=== PATIENT | male | born 1955 | race Caucasian/White ===

== ENCOUNTER 2016-08-29 14:18 | Emergency (ER) | payer OTHER ==
[2016-08-29 14:36] VITALS: TEMP 99
--- NOTE | 2016-08-29 15:29 | RAD ---
EXAM DESCRIPTION: X-RAY CHEST- One View CLINICAL HISTORY: Shortness of breath. COMPARISON: None TECHNIQUE: Single view of the chest. FINDINGS: There are no discrete air space infiltrates, pneumothoraces or pleural effusions. The pulmonary vascularity is normal. There are probable old healed fractures of the right and left posterior 7th ribs. The cardiomediastinal silhouette is unremarkable. IMPRESSION: There are no acute lung parenchymal findings. Electronically signed by: Marvin Anderson MD 08/29/2016 15:27
--- NOTE | 2016-08-29 16:38 | ED.PDOC ---
History of Present Illness - General Chief Complaint: Respiratory Problem Stated Complaint: shortness of breath Time Seen by Provider: 08/29/16 15:10 - History of Present Illness Allergies/Adverse Reactions: Allergies NO KNOWN ALLERGY Allergy (Verified 08/29/16 14:36) Home Medications: Ambulatory Orders Phenobarbital 64.8 mg PO BID 12/14/13 Past Medical History (General) - Patient Medical History Hx Seizures: Yes Hx Stroke: No Hx Dementia: No Hx Asthma: No Hx of COPD: No Hx Cardiac Disorders: No Hx Congestive Heart Failure: No Hx Pacemaker: No Hx Hypertension: Yes Hx Thyroid Disease: No Hx Diabetes: No - diet controlled Hx Gastroesophageal Reflux: No Hx Renal Disease: No Hx Cancer: No Hx of HIV: No Hx Hepatitis C: No Hx MRSA: No Surgical History: no surgical history - Vaccination History Hx Tetanus, Diphtheria Vaccination: - unknown Hx Influenza Vaccination: - unknown Hx Pneumococcal Vaccination: - unknown - Social History Hx Tobacco Use: No Hx Alcohol Use: No Hx Substance Use: No Hx Substance Use Treatment: No Hx Depression: No - Activities of Daily Living Hospice Agency (if applicable):: None - Female History Patient is a Female of Child Bearing Age (10 -59 yrs old): No Patient : No Family Medical History - Family History Mother Family History: No Known Progress - Progress Progress: 08/29/16 16:34 After learning what Patient's CK-MB, Troponin, and d-dimer were, knowing that we would have to transport patient, I called [employer] to get transfer. The hospitalist - EKG/XRAY/CT EKG: Sinus, nonspecific ST T wave Chg - T-wave inversion in V3, V4 Comments: 83bpm, Nml axis, Nml intervals, no comparison, Abnormal EKG XRAY: chest Xray Comments: No acute process CT Ordered: Yes CT Interpretation Call Back: No Departure - Departure Clinical Impression: Shortness of breath, Elevation of cardiac enzymes, Elevated d-dimer Time of Disposition: 17:06 Disposition: Transfer to Hospital Condition: Good Home Medications: Ambulatory Orders Phenobarbital 64.8 mg PO BID 12/14/13 Transfer to Outside Facility - Transfer Information Accepting Provider:: Dr. Royal Accepting Facility: [facility] Reason for Transfer: required specialist not available
--- NOTE | 2016-08-29 16:52 | CT ---
EXAM DESCRIPTION: CT CHEST WITH IV CONTRAST CLINICAL HISTORY: 61 y/o Mshortness of breath,elevated d-dimer COMPARISON: None. TECHNIQUE: Contiguous axial images were obtained through the chest during the infusion of IV contrast. Reformatted images obtained. FINDINGS: The study is slightly suboptimal from motion. The visualized upper abdominal organs appear grossly unremarkable. The visualized splenic flexure is slightly distended with stool. Moderate to large hiatal hernia. Coronary artery calcifications. Small amount of fluid in the mediastinal pericardial recesses. Small lymph nodes in the mediastinum. Mild atherosclerotic changes and tortuosity in the thoracic aorta. The study was not performed utilizing a pulmonary embolism protocol. This study is inadequate for pulmonary embolism evaluation. No consolidating infiltrates or pleural effusions. Degenerative changes in the spine. Old right 7th rib fracture. IMPRESSION: No acute intrathoracic abnormality is identified. The study is inadequate for pulmonary embolism evaluation. Electronically signed by: Jarod Chacko MD 08/29/2016 16:50
[2016-08-29] MEDS ORDERED: ENOXAPARIN SODIUM 100 MG/ML SYG SUBCU ONE (17:47)
[2016-08-29 18:18] VITALS: BP 174/96; O2SAT 94
== END 2016-08-29 18:00 | disposition short-term general hospital (02) ==
LOC: ER 14:18
DX: R06.02 Shortness of breath (principal); R79.89 Other specified abnormal findings of blood chemistry; I10 Essential (primary) hypertension; R94.31 Abnormal electrocardiogram [ECG] [EKG]
CPT/HCPCS: 71010; 71260; 80048; 80076; 82550; 82553; 83880; 84484; 85025; 85379; 85610; 85730; 93005; J1650

== ENCOUNTER → 2016-09-08 | Outpatient (CLI) | payer OTHER | LOC: LAB.O 11:09 | PROVIDERS: ATTEND Internal Medicine Hematology & Oncology | DX: D50.8 Other iron deficiency anemias (principal) ==

== ENCOUNTER 2016-09-11 15:37 | Emergency (ER) | payer OTHER ==
[2016-09-11] MEDS ORDERED: ACETAMINOPHEN 325 MG TAB PO ONE (15:56)
[2016-09-11] MEDS ORDERED: methylPREDNISolone SODIUM SUC 125 MG/2 ML VIAL IV ONE (15:57)
[2016-09-11] MEDS ORDERED: SODIUM CHLORIDE 0.9% 500ML 500 ML IVS SCH (16:00)
[2016-09-11] MEDS ORDERED: methylPREDNISolone SODIUM SUC 125 MG/2 ML VIAL ONE (17:33)
--- NOTE | 2016-09-11 21:23 | ED.PDOC ---
History of Present Illness - General Chief Complaint: GI Problem Stated Complaint: Loosing Blood Time Seen by Provider: 09/11/16 15:37 Source: patient Exam Limitations: no limitations - History of Present Illness Initial Comments: the patient is a 61-year-old male presenting to emergency room secondary to significant anemia. The patient has colon cancer and is planning to have it resected with a surgeon at [facility] on Tuesday. He had a visit with the surgeon last week. On the of this month he had a hemoglobin of 10 and now is down to 5.7. That is a drop of 4-1/2 units in 3 days. He has been having frankly bloody bowel movements. He is feeling tired and a little weak. He is feeling a little bit short of breath. No chest pain. No palpitations. No syncope or near syncope. Timing/Duration: 1 week Severity: moderate Improving Factors: rest Worsening Factors: movement Associated Symptoms: denies symptoms Allergies/Adverse Reactions: Allergies NO KNOWN ALLERGY Allergy (Verified 08/29/16 14:36) Home Medications: Ambulatory Orders Phenobarbital 64.8 mg PO BID 12/14/13 Metoprolol Tartrate 25 mg PO DAILY 09/11/16 Review of Systems - Review of Systems Constitutional: States: malaise EENTM: States: no symptoms reported Respiratory: States: short of breath Cardiology: States: no symptoms reported Gastrointestinal/Abdominal: States: diarrhea - bloody Genitourinary: States: no symptoms reported Musculoskeletal: States: no symptoms reported Skin: States: no symptoms reported Neurological: States: no symptoms reported All other Systems: No Change from Baseline Past Medical History (General) - Patient Medical History Hx Seizures: Yes Hx Stroke: No Hx Dementia: No Hx Asthma: No Hx of COPD: No Hx Cardiac Disorders: No Hx Congestive Heart Failure: No Hx Pacemaker: No Hx Hypertension: Yes Hx Thyroid Disease: No Hx Diabetes: No Hx Gastroesophageal Reflux: No Hx Renal Disease: No Hx Cancer: Yes - Colon Cancer Hx of HIV: No Hx Hepatitis C: No Hx MRSA: No Surgical History: no surgical history - Vaccination History Hx Tetanus, Diphtheria Vaccination: - unknown Hx Influenza Vaccination: Yes Hx Pneumococcal Vaccination: Yes Immunizations Up to Date: Yes - Social History Hx Tobacco Use: No Hx Alcohol Use: No Hx Substance Use: No Hx Substance Use Treatment: No Hx Depression: No - Female History Patient : No Family Medical History - Family History Mother Family History: No Known Living Status: Physical Exam - Physical Exam General Appearance: Alert, Comfortable, No apparent distress Eye Exam: bilateral normal Ears, Nose, Throat: normal ENT inspection, normal pharynx Neck: full range of motion, supple Respiratory: chest non-tender, lungs clear, normal breath sounds, no respiratory distress, no accessory muscle use Cardiovascular/Chest: normal peripheral pulses, regular rate, rhythm, no edema Peripheral Pulses: radial,right: 2+, radial,left: 2+ Gastrointestinal/Abdominal: non tender, soft Rectal Exam: deferred Back Exam: normal inspection Extremity: normal range of motion, non-tender, normal inspection, no pedal edema , other - the patient is pale. Capillary refill is approximately 2 seconds. Neurologic: alert, normal mood/affect, oriented x 3 Skin Exam: pallor Comments: Vital Signs - 24 hr 09/11/16 09/11/16 09/11/16 15:51 18:10 18:30 Temperature 98.0 F 97.2 F L 97.7 F Pulse Rate [ 85 84 78 Apical] Respiratory 16 20 16 Rate Blood Pressure 136/69 114/58 116/57 [Left Arm] O2 Sat by Pulse 100 99 99 Oximetry 09/11/16 09/11/16 18:45 19:15 Temperature 97.1 F L Pulse Rate [ 78 77 Apical] Respiratory 20 16 Rate Blood Pressure 112/64 118/78 [Left Arm] O2 Sat by Pulse 99 96 Oximetry Progress - Progress Progress: 09/11/16 21:25 the patient is a 61-year-old male presenting with symptomatic anemia from a bleeding colon cancer. We are going to transfer the patient to the hospital where his surgeon resides. The patient has received 1 unit of packed red blood cells and is starting the second. He will need a repeat CBC upon arrival. The patient has received Tylenol, Solu-Medrol and Benadryl. He appears to be tolerating the transfusion well. - Results/Orders Results/Orders: Vital Signs - 24 hr 09/11/16 09/11/16 09/11/16 15:51 18:10 18:30 Temperature 98.0 F 97.2 F L 97.7 F Pulse Rate [ 85 84 78 Apical] Respiratory 16 20 16 Rate Blood Pressure 136/69 114/58 116/57 [Left Arm] O2 Sat by Pulse 100 99 99 Oximetry 09/11/16 09/11/16 18:45 19:15 Temperature 97.1 F L Pulse Rate [ 78 77 Apical] Respiratory 20 16 Rate Blood Pressure 112/64 118/78 [Left Arm] O2 Sat by Pulse 99 96 Oximetry 09/11/16 15:56 Acetaminophen [Tylenol] 650 mg PO ONCE ONE 09/11/16 16:00 PACKED CELLS,LR Stat TYPE AND SCREEN Stat Sodium Chloride 0.9% 500Ml [NS 500ml] 500 ml IVS .KVO Laboratory Results - last 24 hr 09/11/16 16:00 Patient ABO/Rh O POSITIVE Antibody Screen Negative Crossmatch See Detail hemoglobin and hematocrit were 5 and 17. 09/11/16 15:56 Acetaminophen [Tylenol] 650 mg PO ONCE ONE 09/11/16 16:00 PACKED CELLS,LR Stat TYPE AND SCREEN Stat Sodium Chloride 0.9% 500Ml [NS 500ml] 500 ml IVS .KVO Laboratory Results - last 24 hr 09/11/16 16:00 Patient ABO/Rh O POSITIVE Antibody Screen Negative Crossmatch See Detail Departure - Departure Clinical Impression: GI bleed Qualifiers: GI bleed type/associated pathology: unspecified gastrointestinal hemorrhage type Qualifier Code: (K92.2) Gastrointestinal hemorrhage, unspecified Disposition: Transfer to Hospital Home Medications: Ambulatory Orders Phenobarbital 64.8 mg PO BID 12/14/13 Metoprolol Tartrate 25 mg PO DAILY 09/11/16 Transfer to Outside Facility - Transfer Information Accepting Provider:: dr sol Accepting Facility: [facility] Reason for Transfer: required specialist not available
[2016-09-11 22:01] VITALS: TEMP 99.1
[2016-09-11 23:43] VITALS: BP 129/80; O2SAT 96
== END 2016-09-11 22:35 | disposition short-term general hospital (02) ==
LOC: ER 15:37
DX: K92.2 Gastrointestinal hemorrhage, unspecified (principal); C18.9 Malignant neoplasm of colon, unspecified; R06.02 Shortness of breath; I10 Essential (primary) hypertension; R56.9 Unspecified convulsions; Z79.899 Other long term (current) drug therapy
CPT/HCPCS: 86850; 86900; 86901; 86922; 87798; J2930; J7040; P9016

== ENCOUNTER → 2016-09-11 | Outpatient (CLI) | payer OTHER | LOC: LAB.O 14:17 | PROVIDERS: ATTEND Nurse Practitioner Family | DX: D64.9 Anemia, unspecified (principal) ==

== ENCOUNTER 2016-10-06 06:02 | Day surgery (SDC) | payer OTHER ==
[2016-10-06] MEDS ORDERED: SODIUM CHL 0.9% 100ML MINI-BAG 100 ML IVPB ONE (07:12)
[2016-10-06] MEDS ORDERED: LACTATED RINGERS 1,000 ML ONE (07:12)
[2016-10-06] MEDS ORDERED: ceFAZolin SODIUM 1 GM VIAL ONE (07:12)
[2016-10-06] MEDS ORDERED: LIDOCAINE 1% 50 ML VIAL INJ ONE (11:29)
[2016-10-06] MEDS ORDERED: HEPARIN SODIUM 100 U/ML 5 ML SYG IV ONE (11:30)
[2016-10-06] MEDS ORDERED: SODIUM BICARBONATE VIAL 50 MEQ/50 ML VIAL ONE (11:30)
[2016-10-06] MEDS ORDERED: SODIUM CHLORIDE 0.9% 50 ML VIAL ONE (11:30)
[2016-10-06] MEDS ORDERED: LIDOCAINE 1% 10 ML VIAL INJ ONE (12:00)
[2016-10-06] MEDS ORDERED: PROPOFOL 200 MG/20 ML VIAL IV ONE ×2 (12:00)
[2016-10-06] MEDS ORDERED: MIDAZOLAM INJ 5 MG/5 ML VIAL ONE (12:18)
[2016-10-06] MEDS ORDERED: fentaNYL CITRATE INJ 50 MCG/ML AMP ONE (12:18)
--- NOTE | 2016-10-06 13:45 | RAD ---
EXAM DESCRIPTION: XR CHEST 1 VIEW CLINICAL HISTORY: Post-Op Port placement COMPARISON: August 29, 2016 TECHNIQUE: Single view chest FINDINGS: The lungs are clear. There is no pleural effusion or pneumothorax. Heart size is unremarkable. IMPRESSION: CT compatible subcutaneous infusion catheter noted. Tip is in the SVC. No evidence of pneumothorax on today's study. Electronically signed by: Arcadio Mckeon MD 10/06/2016 13:42
--- NOTE | 2016-10-06 14:37 | OP ---
DATE OF PROCEDURE: 10/06/16 PREOPERATIVE DIAGNOSIS: 1. Carcinoma of the colon, to begin chemotherapy. POSTOPERATIVE DIAGNOSIS: 1. Carcinoma of the colon, to begin chemotherapy. PROCEDURE: 1. Insertion of right subclavian venous access port using fluoroscopy. SURGEON: George Mejia MD. TERRAZZO INSTALLER: None. ANESTHESIA: Local infiltration of 1% lidocaine with bicarb and IV sedation by Anesthesia. INDICATION: The patient is a 61-year-old male who has undergone a left colectomy with primary anastomosis for a carcinoma of the colon with positive node. He is to begin chemotherapy later this morning and I have been asked to obtain central venous access for such. FINDINGS: The guidewire and then the catheter were identified in the superior vena cava. Post procedure chest x-ray to rule out pneumothorax is pending. PROCEDURE: After the patient was brought to the Surgical Suite, he prepped and draped in the usual sterile manner. He was sedated. The clavicle is noted to have been fractured and first local infiltration was used lateral to the fracture site. However, no blood was obtained there, so we moved medially and made a second area. The needle was introduced and venous blood was easily aspirated. The guidewire was introduced without difficulty. At this point, a towel was placed over the chest and fluoroscopy was used to identify the guidewire in the superior vena cava. At this point, an incision was made over the guidewire and the port pocket was formed, first with local infiltration of anesthesia, then the sharp knife. Dissection was carried down through the skin and subcutaneous tissue using electrocautery and then dissection forming the pocket was done using electrocautery and blunt dissection. The port was introduced into the port pocket and sutured in place with two 3-0 Prolene simple sutures. The catheter was tunneled from the port pocket to the insertion site. It was then cut to the appropriate length. The dilator introducer was introduced over the guidewire. The guidewire and dilator were removed. The catheter was introduced through the introducer and advanced and then the introducer was removed in the usual manner. When this was done, towel was placed over the field and fluoroscopy was used to identify the catheter in good position. The port was accessed with a Gamble needle, aspirated easily, and then flushed first with heparinized saline and then with heplock and the Gamble needle was removed. When this was done, the skin edges were approximated with the port pocket with subcutaneous sutures of 3-0 Vicryl and then subcuticular sutures of 4-0 Vicryl, benzoin and Steri-Strips. Sterile pressure dressing was applied. The patient tolerated the procedure well. Estimated blood loss was less than 20 mL. All sponge, needle and instrument counts were correct. #[id number] [facility]
[2016-10-06 15:12] VITALS: BP 116/79; TEMP 98; O2SAT 100
== END 2016-10-06 14:25 | disposition home or self-care (01) ==
LOC: AMB 06:02
PROVIDERS: ATTEND Surgery
DX: C18.9 Malignant neoplasm of colon, unspecified (principal); I10 Essential (primary) hypertension; E11.9 Type 2 diabetes mellitus without complications; Z86.73 Personal history of transient ischemic attack (TIA), and cerebral infarction without residual deficits; G40.909 Epilepsy, unspecified, not intractable, without status epilepticus; Z90.49 Acquired absence of other specified parts of digestive tract; I48.91 Unspecified atrial fibrillation; R94.31 Abnormal electrocardiogram [ECG] [EKG]; Z87.891 Personal history of nicotine dependence; Z88.8 Allergy status to other drugs, medicaments and biological substances; Z79.899 Other long term (current) drug therapy
CPT/HCPCS: 00532; 36415; 36561; 71010; 76000; 80048; 81001; 85025; 93005; A4216; C1788; J0690; J1642; J2250; J3010; J3490; J7050; J7120

== ENCOUNTER → 2016-11-22 | Outpatient (CLI) | payer OTHER | END | disposition home or self-care (01) | LOC: GMAJ 14:41 | PROVIDERS: ATTEND Family Medicine | DX: G40.309 Generalized idiopathic epilepsy and epileptic syndromes, not intractable, without status epilepticus (principal) ==

== ENCOUNTER → 2017-04-12 | Outpatient (CLI) | payer OTHER | END | disposition home or self-care (01) | LOC: GMAJ 14:12 | PROVIDERS: ATTEND Family Medicine | DX: R56.9 Unspecified convulsions (principal); I10 Essential (primary) hypertension ==

== ENCOUNTER → 2017-07-28 | Outpatient (CLI) | payer OTHER, BC ==
--- NOTE | 2017-07-30 14:15 | CT ---
EXAM DESCRIPTION: Abdomen/Pelvis w/Contrast: CT. CLINICAL HISTORY: MALIGNANT NEOPLASM OF SIGMOID COLON COMPARISON: CT scan of the chest with IV contrast today. TECHNIQUE: Spiral-axial scans at 5.0 mm intervals through the abdomen and pelvis, after nonionic IV contrast. No oral contrast. Coronal and sagittal 2.0 mm reconstructions. No adverse reactions. Total Exam DLP: 1868.77 mGy-cm. This exam was performed according to our departmental dose-optimization program which includes automated exposure control, adjustment of the mA and/or kV according to patient size and/or use of iterative reconstruction technique; to reduce radiation dose to as low as reasonably achievable (ALARA). FINDINGS: Liver, Stomach, Spleen, Adrenal Glands: Moderate hiatal hernia. Spleen adrenal glands and liver are unremarkable. Pancreas, Gallbladder, Ducts: Gallbladder visualized. Pancreas and ducts unremarkable. Kidneys and Ureters: 3.5 cm cyst in the posterior medial right kidney. Small cortical cyst lateral left kidney. 2 mm stone inferior collecting system left. Mesentery: No free air or free fluid. No stranding or fascial thickening. Calcifications abutting the left common iliac artery. Aorta: Normal caliber with no significant atherosclerotic calcification. Minimal calcification in the origin of the left renal artery. Small Bowel: Normal caliber with no significant air-fluid levels. Terminal Ileum/Cecum: Minimally distended by fecal material. Normal caliber of the appendix containing gas. Normal density of the surrounding fat. Colon: Minimally distended by gas and fecal material. Surgical anastomosis of the distal rectum. Distal sigmoid colon is decompressed with a striated appearance. Marked redundancy of the sigmoid colon. Proximal most sigmoid distended by gas. Pelvic Organs: Prostate gland is abutting the base of the urinary bladder with overall increased density. No free fluid. Calcifications in the pelvis with no enlarged lymph nodes. Small lymph nodes. Aortic and bilateral iliac regions. Spine and Bony Pelvis: Spondylosis at multiple levels of the lower thoracic and upper lumbar spine. Also L5-S1 with disc degeneration moderate canal narrowing and significant bilateral foraminal narrowing. Upper lumbar levoscoliosis. No bone destruction. Bilateral hip joint space narrowing. Abdominal Wall/Back Soft Tissues: Moderate size left inguinal hernia not containing bowel. IMPRESSION: 1. Postsurgical changes in the rectum. No mass. Redundant sigmoid but no definite obstruction. Constipation in the mid and distal colon. No bowel obstruction. 2. No pelvic or abdominal mass or adenopathy. No ascites. 3. 3.5 mm cyst right kidney otherwise unremarkable. Small cortical cyst left kidney. 4. Diffuse spondylosis lower thoracic spine and upper lumbar spine and L5-S1 level with bilateral significant foraminal narrowing and scoliosis. 5. Moderate left inguinal hernia not containing bowel. Electronically signed by: Nacho Raygoza MD 07/30/2017 2:14 PM [facility] Workstation: [id number]
--- NOTE | 2017-07-30 14:59 | CT ---
EXAM DESCRIPTION: Chest w/Contrast CT. CLINICAL HISTORY: MALIGNANT NEOPLASM OF SIGMOID COLON COMPARISON: CT scan abdomen with IV contrast on this visit. CT scan of the chest with contrast 08/29/2016. TECHNIQUE: Spiral-axial scans at 5.0 mm intervals through the lungs and thorax with IV contrast. 2.5 mm lung algorithm axial reconstructions. Coronal and sagittal 2.0 Mm reconstructions. No adverse reactions. Total Exam DLP: 1868.77 mGy-cm. This exam was performed according to our departmental dose-optimization program which includes automated exposure control, adjustment of the mA and/or kV according to patient size and/or use of iterative reconstruction technique; to reduce radiation dose to as low as reasonably achievable (ALARA). FINDINGS: Minimal bilateral lower lobe parenchymal scarring with bilateral basilar pleural thickening. Minimal bilateral hyperinflation. Bulla in the anterior right lower lobe. No bilateral abnormal nodules or infiltrates or masses. No pleural effusion or pneumothorax. Thyroid gland uniform enhancement. No enlarged lymph nodes of the neck base. No bilateral axillary adenopathy. Small mediastinal and hilar nodes but not enlarged or abnormally enhancing. Coronary artery calcifications proximal LAD. Spondylosis in the included thoracic spine. No bone destruction or compression deformities. Lower dextroscoliosis. IMPRESSION: 1. Mild emphysematous changes in the lungs bilaterally with a bulla in the right lower lobe. No masses nodules or infiltrates. No pleural effusion. 2. No mediastinal or hilar adenopathy. No axillary adenopathy. No masses in the base of the neck. 3. Stable since prior chest CT scan August 2016. Electronically signed by: Nacho Raygoza MD 07/30/2017 2:58 PM [employer] [facility] Workstation: [id number]
== END ==
LOC: CT 08:21
PROVIDERS: ATTEND Internal Medicine Hematology & Oncology
DX: C18.7 Malignant neoplasm of sigmoid colon (principal); Z98.890 Other specified postprocedural states; N28.1 Cyst of kidney, acquired; K59.00 Constipation, unspecified; M47.894 Other spondylosis, thoracic region; M47.896 Other spondylosis, lumbar region; K40.90 Unilateral inguinal hernia, without obstruction or gangrene, not specified as recurrent

== ENCOUNTER → 2017-09-22 | Outpatient (CLI) | payer BC | LOC: GMAJ 14:46 | PROVIDERS: ATTEND Family Medicine | DX: R56.9 Unspecified convulsions (principal); Z12.5 Encounter for screening for malignant neoplasm of prostate ==

== ENCOUNTER → 2017-10-27 | Outpatient (CLI) | payer BC | LOC: GMAJ 14:11 | PROVIDERS: ATTEND Family Medicine | DX: C18.7 Malignant neoplasm of sigmoid colon (principal) ==

== ENCOUNTER → 2018-02-20 | Outpatient (CLI) | payer BC | LOC: GMAJ 11:45 | PROVIDERS: ATTEND Family Medicine | DX: C18.7 Malignant neoplasm of sigmoid colon (principal) ==

== ENCOUNTER → 2018-07-14 | Outpatient (CLI) | payer BC | LOC: GMAJ 10:46 | PROVIDERS: ATTEND Family Medicine | DX: C18.7 Malignant neoplasm of sigmoid colon (principal) ==

== ENCOUNTER → 2018-10-04 | Outpatient (CLI) | payer BC | LOC: GMAJ 10:48 | PROVIDERS: ATTEND Family Medicine | DX: Z12.5 Encounter for screening for malignant neoplasm of prostate (principal) ==

== ENCOUNTER → 2018-10-09 | Outpatient (CLI) | payer BC ==
--- NOTE | 2018-10-09 13:51 | RAD ---
EXAM DESCRIPTION: UGI: Rad-Fluoroscopy. CLINICAL HISTORY: Gastroesophageal REFLUX DISEASE WITHOUT ESOPHAGITIS COMPARISON: CT scans of the chest 07/28/2017, and 08/29/2016. TECHNIQUE: Preliminary AP rose grower radiograph. The patient swallowed barium pill with water. The patient swallowed gas-producing granules, water, and heavy density barium under fluoroscopic visualization. The images were obtained with the patient standing and horizontal. Patient drank medium density barium through a straw in the semi-prone position. 85 fluoroscopic cine loop images. 13 static fluoroscopic images. Total fluoroscopy time was 4.2 minutes. DAP: 19.4 Gy-cm2. 110.3 mGy. FINDINGS: The patient was given a barium contrast pill and water to drink. After moderate difficulty. The patient was able to swallow the pill which. In the distal esophagus and what appears to be a hiatal hernia. The patient has a subclavian central line in customary position. After swallowing, there is delayed residual filling of the left vallecula. No john aspiration in the larynx. Primary peristaltic wave is interrupted at the distal esophagus by large relatively fixed hiatal hernia. The distal esophagus dilates proximal to the hernia. Contrast narrows as it courses through the hernia, and minimal posterior and right lateral deviation of the lumen, but there is no twist or obstruction of the lumen. When the patient is moved from the standing to the horizontal position, or when patient rolls [id number], marked reflux is noted above the level of the tracheal elle. The coating of the stomach and duodenum was not optimal. No gastroduodenal obstruction. No gross mucosal lesions in the stomach or esophagus. IMPRESSION: 1. Moderate size fixed hiatal hernia but no obstruction or perforation of the lumen in the distal esophagus, hernia, remainder the stomach, or duodenum. Mass effect and minimal deviation of the lumen as it passes through the hernia. 2. Gastroesophageal reflux from the hiatal hernia above the level of the tracheal elle. 3. No gross mucosal lesions or mass effect in the intra-abdominal stomach or duodenum. Electronically signed by: Nacho Raygoza MD 10/09/2018 1:48 PM [facility]
== END ==
LOC: RAD 09:14
PROVIDERS: ATTEND Family Medicine
DX: K21.9 Gastro-esophageal reflux disease without esophagitis (principal)

== ENCOUNTER 2018-11-22 19:34 | Emergency (ER) | payer BC ==
--- NOTE | 2018-11-22 19:47 | ED.PDOC ---
History of Present Illness - General Chief Complaint: Abdominal Pain Stated Complaint: abdominal pain left side Time Seen by Provider: 11/22/18 19:46 Information Source: patient Exam Limitations: no limitations Additional Information: Jitendra Mares 63 y/o male stated that he had onset of sharp steady left sided abdominal pain since this am not going away.Denies hematuria,dysuria,constipation,diarrhea,nausea/vomiting or blood in stool.Able to eat lunch but not better no N/V after food.Has history of colon CA s/p partial colon resection 2 years ago.Had recent colonoscopy and follow up with his oncologist. - History of Present Illness Abdominal Pain Onset Location: other - left side see hpi Pain Radiation: no radiation Quality: moderate Timing/Duration: 7-24 hours Improving Factors: nothing Worsening Factors: nothing Associated Symptoms: denies symptoms Review of Systems - Review of Systems Constitutional: States: no symptoms reported EENTM: States: no symptoms reported Respiratory: States: no symptoms reported Gastrointestinal/Abdominal: States: see HPI Genitourinary: States: no symptoms reported Musculoskeletal: States: no symptoms reported Past Medical History (General) - Patient Medical History Hx Seizures: Yes Hx Stroke: No Hx Dementia: No Hx Asthma: No Hx of COPD: No Hx Cardiac Disorders: No Hx Congestive Heart Failure: No Hx Pacemaker: No Hx Hypertension: Yes Hx Thyroid Disease: No Hx Diabetes: No Hx Gastroesophageal Reflux: No Hx Renal Disease: No Hx Cancer: Yes - Colon Cancer Hx of HIV: No Hx Hepatitis C: No Hx MRSA: No Surgical History: other - colon resection - Vaccination History Hx Tetanus, Diphtheria Vaccination: - unknown Hx Influenza Vaccination: Yes Hx Pneumococcal Vaccination: Yes - Social History Hx Tobacco Use: No Hx Alcohol Use: No Hx Substance Use: No Hx Substance Use Treatment: No Hx Depression: No Hx Physical Abuse: No Hx Emotional Abuse: No - Female History Patient : No Family Medical History - Family History Mother Family History: No Known Living Status: Hx Family Cancer: Yes - dad-pancreatic CA; Hx Family;Other: son-ulcerative colitis and crohns disease Physical Exam - Physical Exam General Appearance: Alert, Comfortable, No apparent distress Eyes, Ears, Nose, Throat Exam: normal ENT inspection Neck: supple, normal inspection Respiratory: chest non-tender, lungs clear, normal breath sounds Cardiovascular/Chest: normal peripheral pulses, regular rate, rhythm, no murmur Peripheral Pulses: No deficit Gastrointestinal/Abdominal: non tender, soft, hernia - left sided reducble inguinal hernia, other - no peritoneal signs Male Genitalia: normal genitalia Back Exam: no CVA tenderness, no vertebral tenderness Extremity: no pedal edema, no calf tenderness Neurologic: alert, oriented x 3 Skin Exam: normal color, warm/dry Special Observations: No evidence of discomfort Progress - Progress Progress: 11/22/18 20:25 Vital Signs - 8 hr 11/22/18 19:48 Temperature 97.3 F L Pulse Rate [ 64 left] Respiratory 18 Rate Blood Pressure 183/90 [left] O2 Sat by Pulse 97 Oximetry 11/22/18 20:25 Reduction of scrotal hernia left side which relived his pain Departure - Departure Clinical Impression: Reducible left inguinal hernia Time of Disposition: 20:26 Disposition: Discharge to Home or Self Care Condition: Fair Departure Forms: ED Discharge - Pt. Copy, Patient Portal Self Enrollment Instructions: Inguinal and Femoral (Groin) Hernias, Groin Hernia (DC) Referrals: Miguelito Calderón MD [Primary Care Provider] - 1-2 Weeks Home Medications: Ambulatory Orders Phenobarbital 64.8 mg PO BID 12/14/13 Hydrochlorothiazide 25 mg PO DAILY 10/05/16 Metoprolol Succinate [Metoprolol Succinate ER] 25 mg PO DAILY 10/05/16 Saccharomyces Boulardii [Probiotic] 250 mg PO DAILY 10/05/16 Sennosides-Docusate Sodium [Cata-Colace 8.6-50 mg] 1 tab PO DAILY 10/05/16 Additional Instructions: Continue with all home medications;Need to follow up with -surgeon for further evaluation and management of groin hernia.Need to wear Jock support and stool softener for constipation.
[2018-11-22 20:02] VITALS: TEMP 97.3
[2018-11-22 20:43] VITALS: BP 126/83; O2SAT 98
== END 2018-11-22 20:43 | disposition home or self-care (01) ==
LOC: ER 19:34
DX: K40.90 Unilateral inguinal hernia, without obstruction or gangrene, not specified as recurrent (principal); I10 Essential (primary) hypertension; Z85.038 Personal history of other malignant neoplasm of large intestine; Z90.49 Acquired absence of other specified parts of digestive tract; Z79.899 Other long term (current) drug therapy

== ENCOUNTER → 2018-12-04 | Outpatient (CLI) | payer BC ==
--- NOTE | 2018-12-04 14:24 | US ---
EXAM DESCRIPTION: Testicular (accession [id number]), Bladder (accession [id number]): Ultrasound. CLINICAL HISTORY: 63 years Male INGUINAL HERNIA COMPARISON: CT abdomen and pelvis with contrast 07/28/2017. TECHNIQUE: Transcutaneous scanning ; two-dimensional and Doppler modes. FINDINGS: Dimensions of the right testicle are 4.5 x 3.2 x 2.9 cm, with normal echogenicity and normal color Doppler flow. Epididymal head measures 13 x 12 x 10 mm, with normal echogenicity and normal color Doppler flow. No scrotal wall thickening. Large spermatocele. No Hydrocele. Dimensions of the left testicle are 4.9 x 3.2 x 2.5 cm, with normal echogenicity and normal color Doppler flow. Epididymal head measures 16 x 9 x 7 mm, with normal echogenicity and normal color Doppler flow. No scrotal wall thickening. No Hydrocele. Prevoid measurements of the urinary bladder 10.3 x 11.1 x 9.7 cm equals 581.6 mL. Post void measurements 10.3 x 9.7 x 9.4 cm equals 489.7 mL. Micturition volume 91.9 mL, approximately 15% of initial volume. Ureteral jets were not seen within the bladder by Doppler. No mass effect on the urinary bladder. IMPRESSION: 1. 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 Right testicle and epididymis unremarkable. 2. No fluid or mass in the left scrotum. Normal ultrasound of the epididymis and testicle. 3. Patient only able to void 15% of initial urinary bladder volume. No mass effect on the urinary bladder. Electronically signed by: Nacho Raygoza MD 12/04/2018 2:21 PM CDT
== END ==
LOC: US 09:06
PROVIDERS: ATTEND Surgery
DX: K40.90 Unilateral inguinal hernia, without obstruction or gangrene, not specified as recurrent (principal); N43.41 Spermatocele of epididymis, single

== ENCOUNTER 2018-12-14 05:38 | Day surgery (SDC) | payer BC ==
--- NOTE | 2018-12-13 10:41 | RAD ---
EXAM DESCRIPTION: Chest,2 Views CLINICAL HISTORY: preop evaluation COMPARISON: Previous chest x-ray October 06, 2016 TECHNIQUE: PA/lateral FINDINGS: Port-A-Cath on the right with tip in the region of the SVC-right atrial junction. Densities and lucencies behind the heart may be a large hiatal hernia. Old right rib fracture appears healed. Heart size is normal with normal pulmonary vascularity. No pleural effusion or pneumothorax. Lungs are clear with no consolidating infiltrate. Lateral view shows intact sternum and osteopenic T-spine multilevel spurring. IMPRESSION: No consolidating infiltrate. Electronically signed by: John Dozier MD 12/13/2018 10:38 AM CDT
[2018-12-14] MEDS ORDERED: LIDOCAINE 1% 10 ML VIAL INJ ONE (07:00)
[2018-12-14] MEDS ORDERED: KETOROLAC TROMETHAMINE INJ 30 MG/ML VIAL ONE (07:00)
[2018-12-14] MEDS ORDERED: ONDANSETRON INJ 4 MG/2 ML VIAL ONE (07:00)
[2018-12-14] MEDS ORDERED: LACTATED RINGERS 1,000 ML ONE (07:00)
[2018-12-14] MEDS ORDERED: PROPOFOL 200 MG/20 ML VIAL IV ONE (07:00)
[2018-12-14] MEDS ORDERED: ceFAZolin SODIUM 1 GM VIAL ONE (07:00)
[2018-12-14] MEDS ORDERED: DEXAMETHASONE INJ 10 MG/ML VIAL ONE (07:00)
[2018-12-14] MEDS ORDERED: SODIUM CHL 0.9% 50ML MIN-BAG+ 50 ML IVPB ONE (07:00)
[2018-12-14] MEDS ORDERED: ePHEDrine SULF 50 MG/ML ONE (07:00)
[2018-12-14] MEDS ORDERED: MIDAZOLAM INJ 2 MG/2 ML VIAL ONE (07:49)
[2018-12-14] MEDS ORDERED: fentaNYL CITRATE INJ 50 MCG/ML AMP ONE (07:49)
[2018-12-14] MEDS ORDERED: LACTATED RINGERS 1,000 ML BAG IV ONE (07:59)
[2018-12-14] MEDS ORDERED: BUPIVACAINE 0.25% W/EPI 50 ML VIAL INJ ONE (08:49)
[2018-12-14] MEDS ORDERED: SUGAMMADEX SODIUM 200 MG/2 ML VIAL IV ONE (09:28)
[2018-12-14] MEDS ORDERED: ROCURONIUM BROMIDE 10 MG/ML VIAL ONE (09:28)
[2018-12-14] MEDS ORDERED: KETAMINE HCL 100 MG/ML VIAL ONE (09:40)
[2018-12-14] MEDS ORDERED: ELECTROLYTE-A 1,000 ML IVS ONE (11:32)
--- NOTE | 2018-12-14 13:15 | OP ---
DATE OF PROCEDURE: 12/14/18 PREOPERATIVE DIAGNOSIS: 1. Incarcerated left inguinal hernia. POSTOPERATIVE DIAGNOSIS: 1. Incarcerated left inguinal hernia. PROCEDURE: 1. Repair of incarcerated left inguinal hernia. SURGEON: George Mejia MD. SILK CONDITIONER: None. ANESTHESIA: General endotracheal anesthesia by Anesthesia and local infiltration of 0.25% Marcaine with epinephrine. INDICATION: The patient is a 63-year-old male who has had a longstanding hernia in the left groin. It has recently become quite uncomfortable and very difficult to reduce. He underwent urology screening and scrotal ultrasound. The patient was brought to the Surgical Suite today for repair of same after the risks, benefits and alternatives to the procedure were discussed and accepted with the patient, his brother and [id number]. FINDINGS: The patient had a weakened floor of the canal, a large wide-mouthed indirect inguinal sac that had no sliding component, but was quite adherent and scarred to the spermatic cord. PROCEDURE: After adequate general endotracheal anesthesia was obtained, the patient was prepped and draped in the supine position in the usual sterile manner. At this point, a surgical time-out was taken. At this point, the left lower quadrant was infiltrated with local anesthesia. An oblique incision was made with a sharp knife and dissection was carried down through the skin and subcutaneous tissue using electrocautery and blunt dissection. The self- retaining retractor was placed. At this time, the external oblique fascia was then opened in the direction of the fibers through the external inguinal ring. When this was done, the external oblique fascia was dissected free from the floor of the canal and the cord. A self-retaining retractor was placed at this level. The cord was then dissected free from the floor of the canal with some difficulty due to scarring and adhesion. Once this had been done, a half inch Rick drain was placed around it for traction. The cord was then explored with a significant amount of fatty tissue dissected free using electrocautery and clamps and ligatures of 3-0 Vicryl. Eventually, the hernia sac identified and isolated. It was opened due to its adherence. It was dissected free down to the level of the internal inguinal ring. It was sutured ligated above the holes and then some portion of it was transected using electrocautery and sent for pathological evaluation. The remaining stump was then reduced below the floor of the canal. The Surgimesh patch was introduced under the floor of the canal and sutured circumferentially with interrupted 2-0 Vicryl sutures. At this point, the wound was irrigated with saline. Hemostasis was noted to be adequate. The floor of the canal which was somewhat slack was imbricated with 2-0 Vicryl [id number] sutures. When this was done, the Surgimesh patch was sutured around the cord in the usual manner with interrupted 2-0 Vicryl sutures, being careful not to suture the nerves. When this was done, again, the wound was irrigated with saline. Hemostasis was noted to be adequate. The cord was placed back in position in the canal. The external oblique fascia was then closed with running 3-0 Vicryl suture. The subcutaneous tissue were noted to have adequate hemostasis, so the cord and subcutaneous tissue above, below and lateral to the incision were infiltrated with local anesthesia. The Michael's fascia was approximated with interrupted 3-0 Chromic suture. Skin edges were approximated with skin stapler. Sterile pressure dressing was applied. The testicle was checked for position in the scrotum. The patient was awakened and taken to the Recovery Room in good and stable condition. Estimated blood loss was approximately 100 mL. All sponge, needle and instrument counts were correct. #[id number] MTDD
[2018-12-14 13:21] VITALS: BP 112/75; TEMP 97.2; O2SAT 96
== END 2018-12-14 13:17 | disposition home or self-care (01) ==
LOC: AMB 05:38
PROVIDERS: ATTEND Surgery
DX: K40.30 Unilateral inguinal hernia, with obstruction, without gangrene, not specified as recurrent (principal); K21.9 Gastro-esophageal reflux disease without esophagitis; I10 Essential (primary) hypertension; E11.51 Type 2 diabetes mellitus with diabetic peripheral angiopathy without gangrene; G40.909 Epilepsy, unspecified, not intractable, without status epilepticus; Z85.038 Personal history of other malignant neoplasm of large intestine; Z86.73 Personal history of transient ischemic attack (TIA), and cerebral infarction without residual deficits; Z87.891 Personal history of nicotine dependence; Z88.8 Allergy status to other drugs, medicaments and biological substances; Z79.82 Long term (current) use of aspirin; Z79.899 Other long term (current) drug therapy
CPT/HCPCS: 00830; 36415; 49507; 71046; 80048; 81001; 85025; 93005; C1781; J0690; J1100; J1885; J2250; J2405; J3010; J3490; J7050; J7120

== ENCOUNTER → 2019-03-29 | Outpatient (CLI) | payer BC | LOC: GMAJ 10:38 | PROVIDERS: ATTEND Family Medicine | DX: C18.7 Malignant neoplasm of sigmoid colon (principal) ==

== ENCOUNTER → 2019-10-01 | Outpatient (CLI) | payer BC | LOC: GMAJ 10:29 | PROVIDERS: ATTEND Family Medicine | DX: C18.7 Malignant neoplasm of sigmoid colon (principal); I10 Essential (primary) hypertension ==

== ENCOUNTER → 2020-04-08 | Outpatient (CLI) | payer BC | LOC: GMAJ 10:49 | PROVIDERS: ATTEND Family Medicine | DX: I10 Essential (primary) hypertension (principal); E11.9 Type 2 diabetes mellitus without complications; E78.2 Mixed hyperlipidemia ==

== ENCOUNTER → 2020-06-23 | Outpatient (CLI) | payer BC | LOC: GMAJ 17:02 | PROVIDERS: ATTEND Family Medicine | DX: C18.7 Malignant neoplasm of sigmoid colon (principal) ==